=== PATIENT | male | born 1960 | race Two or more races ===

== ENCOUNTER 2020-05-22 11:00 | Emergency (ER) | payer MEDICAID, OTHER ==
[~2020-05-22] VITALS: Ht 175.3 cm; Wt 142.9 kg
[2020-05-22 11:04] VITALS: BP 170/90
== END 2020-05-22 12:13 | disposition home or self-care (01) ==
LOC: ER 11:00
DX: S43.401A Unspecified sprain of right shoulder joint, initial encounter (principal); Y08.89XA Assault by other specified means, initial encounter; Y93.89 Activity, other specified; Y92.89 Other specified places as the place of occurrence of the external cause; Y99.8 Other external cause status